=== PATIENT | female | born 1990 | race American Indian/Alaskan Native ===

== ENCOUNTER 2016-09-18 08:04 | Emergency (ER) | payer OTHER ==
[2016-09-18 08:48] LABS: Basophils % (Auto) 0.6 % (0.0-1.8); Eosinophils % (Auto) 3.1 % (0.0-4.3); Hematocrit 41.8 % (30.3-42.9); Hemoglobin 14.1 gm/dl (10.1-14.3); Mean Corpuscular HGB Conc 34 % (30-34); Mean Corpuscular Hemoglobin 32 pg (28-32); Mean Corpuscular Volume 94 fl (79-97); Platelet Count 164 K/mm3 (140-440); Red Blood Count 4.44 M/mm3 (3.65-5.03); Red Cell Distribution Width 12.6 % (13.2-15.2); White Blood Count 4.7 K/mm3 (4.5-11.0)
[2016-09-18 09:10] LABS: Bacteria,Urine 1+ /HPF (Negative); Bilirubin,Urine NEG (Negative); Blood,Urine LG (Negative); Ketones,Urine NEG (Negative); Leukocyte Esterase,Urine NEG (Negative); Nitrite,Urine NEG (Negative); Protein,Urine <15 mg/dL mg/dL (Negative); Urobilinogen,Urine < 2.0 mg/dL (<2.0)
--- NOTE | 2016-09-18 12:33 | Ultrasound Report ---
OB ultrasound: Endovaginal and transabdominal imaging demonstrates a retroverted uterus measuring 5.2 x 6.1 x 11.1 cm. The myometrium is homogeneous. The endometrium has a thickness of 5.5 mm. No evidence of gestation identified. Cul-de-sac fluid is identified. The left ovary measures 3.6 cm and the right measures 3.4 cm. No adnexal masses otherwise noted. Impressions: No current evidence of intra-or extrauterine .
--- NOTE | 2016-09-18 12:59 | Emergency Department Report ---
HPI - General Chief Complaint: Vaginal Bleeding Time Seen by Provider: 09/18/16 12:41 - HPI HPI: Room 9 The patient is a 26-year-old female presenting with a chief complaint of vaginal bleeding. The patient states she took a test last week and was found to be positive. The patient states she saw her PHYSICAL SCIENCE TECHNICIAN Dr. Hung and it was estimated the patient was approximate 4 weeks regnant secondary to last menstrual cycle all 08/14/2016. The patient states last night she took ibuprofen secondary to upper back pain. Patient states she has some vaginal spotting last night which increased overnight. The patient states the bleeding has decreased which is gone through 5 pads today. The patient currently denies complaints. When asked how she is feeling the patient states she feels "fine." Location: [see above] Duration: [see above] Quality: Painless Severity: 0/10 Modifying factors: [see above] Context: [see above] Mode of transportation: [not driving] ED Past Medical Hx - Past Medical History Previous Medical History?: No - Surgical History Additional Surgical History: - Family History Family history: no significant - Social History Smoking Status: Never Smoker Substance Use Type: Marijuana - Medications Home Medications: Home Medications Medication Instructions Recorded Confirmed Last Taken Type No Known Home Medications [No 09/18/16 09/18/16 Unknown History Reported Home Medications] ED Review of Systems ROS: Stated complaint: 4WKS /BLEEDING SINCE YESTERDAY Other details as noted in HPI Comment: All other systems reviewed and negative Constitutional: denies: chills, fever Eyes: denies: eye pain, eye discharge, vision change ENT: denies: ear pain, throat pain Respiratory: denies: cough, shortness of breath, wheezing Cardiovascular: denies: chest pain, palpitations Endocrine: no symptoms reported Gastrointestinal: hematochezia Genitourinary: abnormal menses Musculoskeletal: denies: back pain, joint swelling, arthralgia Skin: denies: rash, lesions Neurological: denies: headache, weakness, paresthesias Psychiatric: denies: anxiety, depression Hematological/Lymphatic: denies: easy bleeding, easy bruising Physical Exam - Physical Exam Vital Signs: Vital Signs 09/18/16 08:25 Temperature 97.6 F Pulse Rate 78 Respiratory 16 Rate Blood Pressure 130/90 O2 Sat by Pulse 100 Oximetry Physical Exam: GENERAL: The patient is well-developed well-nourished female sitting on stretcher not appearing to be in acute distress. [] HEENT: Normocephalic. Atraumatic. Extraocular motions are intact. Patient has moist mucous membranes. NECK: Supple. Trachea midline CHEST/LUNGS: Clear to auscultation. There is no respiratory distress noted. HEART/CARDIOVASCULAR: Regular. There is no tachycardia. There is no gallop rub or murmur. ABDOMEN: Abdomen is soft, nontender. Patient has normal bowel sounds. There is no abdominal distention. SKIN: There is no rash. There is no edema. There is no diaphoresis. NEURO: The patient is awake, alert, and oriented. The patient is cooperative. The patient has normal speech MUSCULOSKELETAL: There is no evidence of acute injury. ED Course Vital Signs 09/18/16 08:25 Temperature 97.6 F Pulse Rate 78 Respiratory 16 Rate Blood Pressure 130/90 O2 Sat by Pulse 100 Oximetry ED Medical Decision Making - Lab Data Result diagrams: 09/18/16 08:36 Laboratory Tests 09/18/16 09/18/16 09/18/16 08:36 08:36 08:36 WBC 4.7 RBC 4.44 Hgb 14.1 Hct 41.8 MCV 94 MCH 32 MCHC 34 RDW 12.6 L Plt Count 164 Lymph % (Auto) 34.9 Spink % (Auto) 8.9 H Eos % (Auto) 3.1 Baso % (Auto) 0.6 Lymph # 1.7 Spink # 0.4 Eos # 0.1 Baso # 0.0 Seg Neutrophils % 52.5 Seg Neutrophils # 2.5 HCG, Quant 22.71 H Urine Color Urine Turbidity Urine pH Ur Specific [place] Urine Protein Urine Glucose (UA) Urine Ketones Urine Blood Urine Nitrite Urine Bilirubin Urine Urobilinogen Ur Leukocyte Esterase Urine WBC (Auto) Urine RBC (Auto) U Epithel Cells (Auto) Urine Bacteria (Auto) Blood Type A POSITIVE DAVE Antibody Screen Negative 09/18/16 08:50 WBC RBC Hgb Hct MCV MCH MCHC RDW Plt Count Lymph % (Auto) [place] % (Auto) Eos % (Auto) Baso % (Auto) Lymph # [place] # Eos # Baso # Seg Neutrophils % Seg Neutrophils # HCG, Quant Urine Color Yellow Urine Turbidity Clear Urine pH 6.0 Ur Specific [place] 1.012 Urine Protein <15 mg/dl Urine Glucose (UA) Neg Urine Ketones Neg Urine Blood Lg Urine Nitrite Neg Urine Bilirubin Neg Urine Urobilinogen < 2.0 Ur Leukocyte Esterase Neg Urine WBC (Auto) 11.0 H Urine RBC (Auto) 23.0 U Epithel Cells (Auto) 2.0 Urine Bacteria (Auto) 1+ Blood Type DAVE Antibody Screen - Radiology Data Radiology results: report reviewed (pelvic ultrasound), image reviewed (pelvic ultrasound) Pelvic ultrasound (read by radiologist)-no current evidence of intra or extrauterine - Medical Decision Making Is patient was informed she was 4 weeks is likely her current hCG of 22 is indicative of a spontaneous . However, the stress to the patient that she should return to the ED or follow-up with her PHYSICAL SCIENCE TECHNICIAN in 48 hours to have her serum hCG level repeated. I discussed this at length with the patient that I cannot completely exclude an ectopic or confirm that she is no longer . Patient verbalized understanding of need for follow-up in 48 hours - Differential Diagnosis ectopic , threatened , spontaneous Critical care attestation.: If time is entered above; I have spent that time in minutes in the direct care of this critically ill patient, excluding procedure time. ED Disposition Clinical Impression: Threatened Disposition: DISCHARGED TO HOME OR SELFCARE Is pt being admited?: No Does the pt Need Aspirin: No Condition: Stable Instructions: Threatened Miscarriage (ED), Ectopic (ED), Spontaneous Miscarriage (ED) Additional Instructions: You should return to the emergency department or follow-up with her PHYSICAL SCIENCE TECHNICIAN in 48 hours to have your serum hCG level rechecked. Return to the emergency department immediately should you develop worsening symptoms, fever, inability to tolerate food or liquid or any other concerns. Referrals: PRIMARY CARE, [Primary Care Provider] - 3-[address] Hung, your PHYSICAL SCIENCE TECHNICIAN [Other] - 09/20/16 Time of Disposition: 13:07
[2016-09-18 13:34] VITALS: BP 119/65
== END 2016-09-18 13:51 | disposition home or self-care (01) ==
LOC: ED 08:04
DX: O20.0 Threatened abortion (principal); O99.321 Drug use complicating pregnancy, first trimester; F12.10 Cannabis abuse, uncomplicated; Z3A.01 Less than 8 weeks gestation of pregnancy
CPT/HCPCS: 36415; 76801; 76817; 81001; 84702; 85025; 86850; 86900; 86901

== ENCOUNTER 2017-04-20 10:02 | Emergency (ER) | payer MEDICAID ==
[2017-04-20 10:15] VITALS: BP 110/65
[2017-04-20 11:17] LABS: Bacteria,Urine 1+ /HPF (Negative); Bilirubin,Urine NEG (Negative); Blood,Urine SM (Negative); Ketones,Urine 20 mg/dL (Negative); Leukocyte Esterase,Urine LG (Negative); Mucus,Urine 3+ /HPF; Nitrite,Urine NEG (Negative)
[2017-04-20 11:24] LABS: WBC,Urine > 182.0 /HPF (0.0-6.0)
--- NOTE | 2017-04-20 11:31 | Emergency Department Report ---
ED Female HPI - General Chief complaint: Urogenital-Female Stated complaint: back pain and dysuria Time Seen by Provider: 04/20/17 10:44 Source: patient Mode of arrival: Ambulatory Limitations: No Limitations - History of Present Illness MD Complaint: dysuria, other (back pain; denies concern for std) -: Gradual, days(s) Consistency: constant Improves with: none Worsens with: urination Are you Now?: No (lm p 2 w ago) Associated Symptoms: dysuria. denies: vaginal discharge, vaginal bleeding, abdominal pain, nausea/vomiting, fever/chills, headaches, loss of appetite, hematuria, rash, seizure, shortness of breath, syncope, weakness - Related Data Sexually active: Yes Previous Rx's Medication Instructions Recorded Last Taken Type Ciprofloxacin HCl [Cipro] 500 mg PO BID #14 tablet 04/20/17 Unknown Rx Allergies Allergy/AdvReac Type Severity Reaction Status Date / Time No Known Allergies Allergy Unverified 09/18/16 08:28 ED Review of Systems ROS: Stated complaint: BACK PAIN Other details as noted in HPI Comment: All other systems reviewed and negative Genitourinary: dysuria Musculoskeletal: back pain ED Past Medical Hx - Past Medical History Previous Medical History?: No - Surgical History Past Surgical History?: Yes Additional Surgical History: - Social History Smoking Status: Never Smoker Substance Use Type: None - Medications Home Medications: Home Medications Medication Instructions Recorded Confirmed Last Taken Type Ciprofloxacin HCl [Cipro] 500 mg PO BID #14 tablet 04/20/17 Unknown Rx ED Physical Exam - General Limitations: No Limitations General appearance: alert - Head Head exam: Present: atraumatic - Eye Eye exam: Present: normal appearance - ENT ENT exam: Present: normal exam, mucous membranes moist - Neck Neck exam: Present: normal inspection - Respiratory Respiratory exam: Present: normal lung sounds bilaterally - Cardiovascular Cardiovascular Exam: Present: regular rate - GI/Abdominal GI/Abdominal exam: Present: soft, normal bowel sounds. Absent: distended, tenderness, guarding, rebound, rigid, diminished bowel sounds, hyperactive bowel sounds, hypoactive bowel sounds, organomegaly, mass ED Course Vital Signs 04/20/17 10:14 Temperature 98 F Pulse Rate 89 Respiratory 16 Rate Blood Pressure 110/65 O2 Sat by Pulse 100 Oximetry ED Medical Decision Making - Lab Data Result diagrams: 04/20/17 12:37 04/20/17 12:37 - Medical Decision Making SEE NOTE - Differential Diagnosis UTI V STD Critical care attestation.: If time is entered above; I have spent that time in minutes in the direct care of this critically ill patient, excluding procedure time. ED Disposition Clinical Impression: Pyelonephritis Disposition: DC-01 TO HOME OR SELFCARE Is pt being admited?: No Does the pt Need Aspirin: No Condition: Stable Instructions: Urinary Tract Infection in Men (ED), Acute Pyelonephritis (ED) Additional Instructions: safe sex follow up with obgyn and pcp this week drink alot of water meds as ordered today until gone eat yogurt while on antibiotics Prescriptions: Ciprofloxacin HCl [Cipro] 500 mg PO BID #14 tablet Referrals: PRIMARY CARE,MD [Primary Care Provider] - 3-5 Days ANNAMARIE GUERRIER MD [Staff Physician] - 3-5 Days Time of Disposition: 13:50
[2017-04-20] MEDS ORDERED: NACL 0.9% 1000 ML 1,000 ML IV ONE (11:32)
[2017-04-20] MEDS ORDERED: LEVAQUIN 500MG/100ML 500 MG/100 ML BAG IV ONE (12:40)
[2017-04-20 13:14] LABS: Basophils % (Auto) 0.2 % (0.0-1.8); Eosinophils % (Auto) 0.1 % (0.0-4.3); Hemoglobin 13.4 gm/dl (10.1-14.3); Mean Corpuscular HGB Conc 34 % (30-34); Mean Corpuscular Hemoglobin 31 pg (28-32); Mean Corpuscular Volume 93 fl (79-97); Platelet Count 132 K/mm3 (140-440); Red Blood Count 4.29 M/mm3 (3.65-5.03); Red Cell Distribution Width 12.6 % (13.2-15.2); White Blood Count 11.8 K/mm3 (4.5-11.0)
[2017-04-20 13:32] LABS: Alanine Aminotransferase 9 units/L (7-56); Albumin 3.8 g/dL (3.9-5); Albumin/Globulin Ratio 1.5 %; Alkaline Phosphatase 52 units/L (35-129); Anion Gap 20 mmol/L; BUN/Creatinine Ratio 13; Blood Urea Nitrogen 9 mg/dL (7-17); Calcium 8.1 mg/dL (8.4-10.2); Carbon Dioxide 22 mmol/L (22-30); Glucose 90 mg/dL (65-100); Potassium 4.3 mmol/L (3.6-5.0); Sodium 141 mmol/L (137-145); Total Protein 6.4 g/dL (6.3-8.2)
== END 2017-04-20 14:01 | disposition home or self-care (01) ==
LOC: ED 10:02
DX: N12 Tubulo-interstitial nephritis, not specified as acute or chronic (principal); M54.9 Dorsalgia, unspecified; Z98.890 Other specified postprocedural states
CPT/HCPCS: 36415; 80053; 81001; 81025; 85025; 87086; 87210; 87591; 96361; 96365; 99283; J1956; J7030